=== PATIENT | male | born 1940 | race Caucasian/White ===

== ENCOUNTER 2021-10-04 05:13 | Day surgery (SDC) | payer MEDICARE ==
[~2021-10-04 05:13] MED LIST: Sodium Chloride 0.9% 10 ML Syringe FLUSH SCH
[2021-10-04] MEDS ORDERED: fentaNYL 100 MCG/2 ML SDV IV ONE ×3 (05:14→06:40)
[2021-10-04] MEDS ORDERED: Midazolam 1 MG/ML 2 ML SDV IV ONE ×6 (05:14→06:49)
[2021-10-04] MEDS ORDERED: Midazolam 1 MG/ML 2 ML SDV ONE (05:18)
[2021-10-04] MEDS ORDERED: fentaNYL 100 MCG/2 ML SDV ONE (05:18)
[2021-10-04] MEDS ORDERED: Sodium Chloride 0.9% 10 ML Syringe FLUSH SCH (06:00)
[2021-10-04] MEDS ORDERED: Dextrose 5%-0.45% NaCl 1,000 ML IV SCH (06:00)
[2021-10-04] MEDS ORDERED: Sodium Chloride 0.9% 10 ML Syringe FLUSH PRN (06:00)
--- NOTE | 2021-10-04 10:23 | OR ---
DATE: 10/04/2021 PROCEDURES: Total colonoscopy and narrow band imaging. INSTRUMENT USED: CF-HQ190 Olympus video colonoscope. PREMEDICATIONS: Fentanyl 100 mcg intravenous, Versed 3.5 mg IV. Nasal O2 cannula. The procedure was done under pulse oximetry, BP recording, and cardiac monitoring. INDICATION: The patient with a previous colonic polyp and recent persistent constipation requiring stool softeners and/or laxatives. Colonoscopic examination is done for detection of any polypoid lesions and removal, endoscopic hemostasis therapy if needed. DESCRIPTION OF PROCEDURE: Initial rectal exam was unremarkable. Rigid anoscopy was normal. The colonoscope was passed with ease. Rectosigmoid area showed vascular ectasia without bleeding. NBI views were obtained. Photographs were taken. The scope was passed with ease up to the ileocecal area. Photographs were taken of the normal-appearing cecum identified by landmarks of appendiceal orifice and double-bulged ileocecal folds. No bleeding was noted from any of the visualized areas at the commencement of examination. The bowel preparation was found to be adequate, [place] scale 3 in all the regions, total score 9. No stricture. No large isolated ulcerations seen. No evidence of diffuse inflammatory bowel disease in the form of friability, contact bleeding, or ulcerations. No polyp or tumor mass identified. Probing the proximal sides of folds and flexures using adequate distention and clearing up the stool material, withdrawal of the scope was made, cecum to rectum time over 9 minutes. No bleeding was noted from any of the visualized areas at the completion of examination. IMPRESSION: Rectosigmoid vascular ectasia. The patient tolerated the procedure well. [facility] /[id number]
--- NOTE | 2021-10-07 11:35 | LETTER ---
10/07/2021 KELLI Goldberg [facility] [address] [place] [id number] RE: YVON WHALEN : 1940 Dear Ms. Cason: Mr. Yvon Whalen had colonoscopic examination done and he tolerated the procedure well. I herewith send a copy of the endoscopy note and photographs for your review. Thank you. Sincerely, [facility] /[id number]
== END 2021-10-04 09:09 | disposition home or self-care (01) ==
LOC: DL.ENDO 05:13
PROVIDERS: ATTEND Internal Medicine Gastroenterology
DX: K59.00 Constipation, unspecified (principal); K55.20 Angiodysplasia of colon without hemorrhage; E66.09 Other obesity due to excess calories; I10 Essential (primary) hypertension; E78.5 Hyperlipidemia, unspecified; E11.9 Type 2 diabetes mellitus without complications; C61 Malignant neoplasm of prostate; Z86.010 Personal history of colon polyps; Z20.822 Contact with and (suspected) exposure to COVID-19; Z98.890 Other specified postprocedural states; Z01.812 Encounter for preprocedural laboratory examination; Z68.35 Body mass index [BMI] 35.0-35.9, adult
CPT/HCPCS: 45378; J2250; J3010; J7042; U0002

== ENCOUNTER 2023-08-01 23:02 | Emergency (ER) | payer MEDICARE, OTHER ==
[2023-08-01] MEDS ORDERED: Sodium Chloride 0.9% 10 ML Syringe FLUSH PRN (23:22)
[2023-08-01 23:47] LABS: HEMATOCRIT 28.6 % (40.0-54.0); HEMOGLOBIN 8.5 g/dL (14.0-18.0); MEAN CORPUSCULAR HGB CONC 29.7 g/dL (33.0-35.0); MEAN CORPUSCULAR VOLUME 84.1 fL (80-100); PLATELET COUNT,PLT 177 10^3/uL (150-450); WHITE BLOOD CELL COUNT,WBC 12.4 10^3/uL (5.0-10.0)
[2023-08-01 23:53] LABS: BASOPHILS PERCENT AUTO 0.1 % (0.0-1.0); EOSINOPHILS PERCENT AUTO 0.1 % (1.0-3.0); LYMPHOCYTES PERCENT AUTO 11.1 % (20.5-50.1); MONOCYTES PERCENT AUTO 10.4 % (2-8); NEUTROPHILS PERCENT AUTO 78.3 % (42.2-75.2)
[2023-08-02 00:05] LABS: ALANINE AMINOTRANSFERASE,ALT 37 U/L (16-63); ALBUMIN 2.6 g/dL (3.4-5.0); ALKALINE PHOSPHATASE 172 U/L (46-116); ANION GAP 13.6 mEq/L (7-13); ASPARTATE AMNIOTRANSFERASE,AST 31 U/L (15-37); BILIRUBIN TOTAL 0.2 mg/dL (0.2-1.0); BLOOD UREA NITROGEN,BUN 26 mg/dL (7-18); BUN/CREATININE RATIO 24.5 (No establ ref range); C-REACTIVE PROTEIN 1.83 ng/dL (<=0.30); CALCIUM 8.7 mg/dL (8.5-10.1); CARBON DIOXIDE,CO2 27 mmol/L (21-32); CHLORIDE,CL 106 mmol/L (98-107); CREATININE 1.06 mg/dL (0.70-1.30); GLUCOSE RANDOM 117 mg/dL (70-99); POTASSIUM,K 4.6 mmol/L (3.5-5.1); PROTEIN TOTAL,TP 6.2 g/dL (6.4-8.2); SODIUM,NA 142 mmol/L (136-145)
[2023-08-02 00:08] LABS: A/G RATIO 0.72; ESTIMATED GFR 71 mL/min (>=60)
[2023-08-02 00:41] LABS: BAND PERCENT MAN 6 %; LYMPHOCYTES PERCENT MAN 12 % (20-50); MONOCYTES PERCENT MAN 4 % (2-8); SEG NEUTROPHILS PERCENT MAN 78 % (42-75)
[2023-08-02 03:37] LABS: APPEARANCE,URINE CLEAR (CLEAR); BILIRUBIN,URINE NEGATIVE (NEGATIVE); COLOR,URINE YELLOW (YELLOW); GLUCOSE,URINE NEGATIVE (NEGATIVE); KETONES,URINE NEGATIVE (NEGATIVE); LEUKOCYTE ESTERASE,URINE NEGATIVE (NEGATIVE); NITRITE,URINE NEGATIVE (NEGATIVE); OCCULT BLOOD,URINE SMALL (NEGATIVE); PROTEIN,URINE 30 (NEGATIVE); UROBILINOGEN,URINE 0.2 mg/dL (0.2-1.0)
[2023-08-02 03:47] LABS: BACTERIA,URINE FEW /HPF (0-FEW/HPF); EPITHELIAL CELLS,URINE FEW /HPF (NOT SEEN); MUCUS,URINE MODERATE /LPF (NOT SEEN)
== END 2023-08-02 06:53 ==
LOC: DL.ED 23:02
DX: N48.30 Priapism, unspecified (principal); E78.00 Pure hypercholesterolemia, unspecified; E11.22 Type 2 diabetes mellitus with diabetic chronic kidney disease; I12.9 Hypertensive chronic kidney disease with stage 1 through stage 4 chronic kidney disease, or unspecified chronic kidney disease; N18.9 Chronic kidney disease, unspecified; Z79.84 Long term (current) use of oral hypoglycemic drugs; Z79.899 Other long term (current) drug therapy
CPT/HCPCS: 36415; 80053; 81001; 85025; 86140; 99284; 99285; J3490

== ENCOUNTER 2023-09-09 16:08 | Emergency (ER) | payer MEDICARE ==
[2023-09-09 16:37] LABS: HEMATOCRIT 24.7 % (40.0-54.0); HEMOGLOBIN 7.6 g/dL (14.0-18.0); MEAN CORPUSCULAR HEMOGLOBIN 27.6 pg (27.0-34.0); MEAN CORPUSCULAR HGB CONC 30.8 g/dL (33.0-35.0); MEAN CORPUSCULAR VOLUME 89.8 fL (80-100); PLATELET COUNT,PLT 162 10^3/uL (150-450); RED BLOOD CELL COUNT 2.75 10^6/uL (4.6-6.2); WHITE BLOOD CELL COUNT,WBC 11.1 10^3/uL (5.0-10.0)
[2023-09-09 16:38] LABS: BASOPHILS PERCENT AUTO 0.2 % (0.0-1.0); EOSINOPHILS PERCENT AUTO 0.2 % (1.0-3.0); LYMPHOCYTES PERCENT AUTO 14.1 % (20.5-50.1); MONOCYTES PERCENT AUTO 10.4 % (2-8); NEUTROPHILS PERCENT AUTO 75.1 % (42.2-75.2)
[2023-09-09 17:00] LABS: ALBUMIN 2.8 g/dL (3.4-5.0); ANION GAP 15.8 mEq/L (7-13); BILIRUBIN TOTAL 0.4 mg/dL (0.2-1.0); BUN/CREATININE RATIO 18.5 (No establ ref range); C-REACTIVE PROTEIN 6.06 ng/dL (<=0.50); CALCIUM 9.2 mg/dL (8.5-10.1); CREATININE 0.92 mg/dL (0.70-1.30); EST CRCL DRUG DOSING (CG) 65.02 mL/min; POTASSIUM,K 3.8 mmol/L (3.5-5.1); PROTEIN TOTAL,TP 6.2 g/dL (6.4-8.2)
[2023-09-09 17:08] LABS: A/G RATIO 0.82; LACTIC ACID 4.5 mmol/L (0.4-2.0)
[2023-09-09] MEDS ORDERED: Sodium Chloride 0.9% 1,000 ML IV ONE (17:11)
[2023-09-09 17:17] LABS: BAND PERCENT MAN 8 %; LYMPHOCYTES PERCENT MAN 10 % (20-50); MONOCYTES PERCENT MAN 5 % (2-8); SEG NEUTROPHILS PERCENT MAN 77 % (42-75)
[2023-09-09 17:18] LABS: NRBC MANUAL 2 /100WBC
[2023-09-09 17:52] LABS: PROTHROMBIN TIME 9.9 SEC (9.0-12.0); PTT,PARTIAL THROMBOPLSTIN TIME 25.2 SEC (22.0-34.0)
== END 2023-09-09 18:18 ==
LOC: DL.ED 16:08
DX: D64.9 Anemia, unspecified (principal); K62.5 Hemorrhage of anus and rectum; C79.51 Secondary malignant neoplasm of bone; I12.9 Hypertensive chronic kidney disease with stage 1 through stage 4 chronic kidney disease, or unspecified chronic kidney disease; N18.9 Chronic kidney disease, unspecified; E11.9 Type 2 diabetes mellitus without complications; E66.9 Obesity, unspecified; E78.00 Pure hypercholesterolemia, unspecified; M19.90 Unspecified osteoarthritis, unspecified site; Z68.32 Body mass index [BMI] 32.0-32.9, adult; Z79.82 Long term (current) use of aspirin; Z79.84 Long term (current) use of oral hypoglycemic drugs; Z79.2 Long term (current) use of antibiotics; Z79.899 Other long term (current) drug therapy
CPT/HCPCS: 36415; 80053; 82272; 83605; 85025; 85610; 85730; 86140; 86850; 86900; 86901; 96360; 99285; J7030

== ENCOUNTER 2023-10-09 11:51 | Emergency (ER) | payer MEDICARE ==
[2023-10-09] MEDS ORDERED: Ferric Subsulfate Topical Soln 8 GM (8 ML) Bottle TOP ONE (12:23)
== END 2023-10-09 13:11 | disposition home or self-care (01) ==
LOC: DL.ED 11:51
DX: N48.89 Other specified disorders of penis (principal); I12.9 Hypertensive chronic kidney disease with stage 1 through stage 4 chronic kidney disease, or unspecified chronic kidney disease; N18.9 Chronic kidney disease, unspecified; E78.00 Pure hypercholesterolemia, unspecified; E11.9 Type 2 diabetes mellitus without complications; E66.9 Obesity, unspecified; Z79.84 Long term (current) use of oral hypoglycemic drugs; Z79.899 Other long term (current) drug therapy; Z79.82 Long term (current) use of aspirin; Z68.33 Body mass index [BMI] 33.0-33.9, adult
CPT/HCPCS: 99283